=== PATIENT | female | born 1980 | race Caucasian/White ===

== ENCOUNTER 2018-08-04 10:18 | Emergency (ER) | payer MEDICAID ==
[~2018-08-04] VITALS: Ht 162.6 cm; Wt 70.5 kg
[2018-08-04 10:36] VITALS: BP 115/71; Ht 162.6 cm; Wt 70.5 kg
[2018-08-04 11:21] LABS: APPEARANCE CLEAR (CLEAR); BILIRUBIN NEGATIVE (NEGATIVE); COLOR YELLOW (YELLOW); GLUCOSE NEGATIVE (NEGATIVE); KETONE NEGATIVE (NEGATIVE); NITRITE NEGATIVE (NEGATIVE); PROTEIN NEGATIVE (NEGATIVE); UROBILINOGEN NORMAL (NORMAL)
== END 2018-08-04 11:42 | disposition left against medical advice (07) ==
LOC: D.ER 10:18
PROVIDERS: Family Medicine
DX: N89.8 Other specified noninflammatory disorders of vagina (principal)